=== PATIENT | male | born 1965 | race Caucasian/White ===

== ENCOUNTER 2023-03-20 14:20 | Outpatient (AMB) | payer SELFPAY ==
--- NOTE | 2023-03-20 14:56 | MHC.OFFWIV ---
Intake Vital Signs 03/20/23 14:58 Height 5 ft 7.5 in Weight 230 lb BMI 35.5 BP 130/100 H Blood Pressure Location Lt brachial Position Sitting Pulse 95 Pulse Source Pulse Oximeter Temp 97.4 F Temp Source Temporal Artery Scan Pulse Oximetry (%) 95 Oxygen Delivery Method Room Air Intake Visit Reasons: INTEGRATION SPECIALIST, Rash all over Intake Note: Patient here for rash all over body that has been present for about 2 weeks. denies any fevers, itchiness. Patient Tobacco Use Status: Former Tobacco user Allergies No Known Allergies Allergy (Verified 03/20/23 14:59) Do you need a note to return to daycare/school/sports/work: No HPI INTEGRATION SPECIALIST, Rash all over HPI Details 57-year-old male presents to the office for a sick visit. Patient has a rash all over his body. He developed it in the last 2 weeks. [facility] Social History Patient Tobacco Use Status: Former Tobacco user Physical Exam Vital Signs: Last Vital Signs Temp 97.4 F 03/20/23 14:58 Pulse 95 03/20/23 14:58 BP 130/100 H 03/20/23 14:58 Pulse Ox 95 03/20/23 14:58 Oxygen Delivery Method Room Air 03/20/23 14:58 BMI result Body Mass Index 35.5 Skin Other: Erythematous papules and macular rash all over the body, abdomen and trunk. Assessment & Plan Assessment & Plan (1) Tinea versicolor: Code(s): B36.0 - Pityriasis versicolor Plan: Itraconazole called in. If symptoms do not improve to follow-up here. Medications: New itraconazole must administer with a meal/food 200 mg (2 x 100 mg) PO DAILY 10 caps 0RF Coding Level of Care Code Est Pt Level 3 (60134) Diagnoses Tinea versicolor B36.0
[2023-03-20 14:58] VITALS: BP 130/100; PULSE 95; TEMP 36.3; O2SAT 95; BMI 35.5
== END 2023-03-20 16:05 | disposition home or self-care (01) ==
PROVIDERS: Visit Provider Internal Medicine
DX: B36.0 Pityriasis versicolor (principal)
CPT/HCPCS: 99213